=== PATIENT | male | born 1950 | race Caucasian/White ===

== ENCOUNTER → 2024-03-04 | Outpatient (CLI) | payer MEDICARE, OTHER, SELFPAY ==
[2024-03-04 14:19] LABS: Basophils # (Auto) 0.1 Thou/mm3 (0.0-0.2); Basophils % (Auto) 1 % (0-2.5); Eosinophils # (Auto) 0.4 Thou/mm3 (0.0-0.5); Eosinophils % (Auto) 3 % (0-10); Hemoglobin 14.3 g/dL (13.5-16.0); Immature Granulocytes % (Auto) 1 % (0-0); Immature Granulocytes Auto 0.06 Thou/mm3 (0.00-0.00); Lymphocytes # (Auto) 2.1 Thou/mm3 (1.0-4.8); Lymphocytes % (Auto) 18 % (10-50); Mean Corpuscular HGB Conc 32.5 g/dl (31.0-37.0); Mean Corpuscular Hemoglobin 27.6 pg (25.0-35.0); Mean Corpuscular Volume 85 fL (80-100); Monocytes # (Auto) 0.8 Thou/mm3 (0.0-0.8); Monocytes % (Auto) 7 % (0-12); Neutrophils # (Auto) 8.2 Thou/mm3 (1.8-7.7); Neutrophils % (Auto) 70 % (37-80); Nucleated Red Blood Cell % 0 /100 WBC (0); Platelet Count 330 Thou/mm3 (140-440); RDW Standard Deviation 46.4 fL (35.1-43.9); Red Blood Count 5.19 Miln/mm3 (4.50-5.90); White Blood Count 11.7 Thou/mm3 (3.8-10.6)
[2024-03-04 18:04] LABS: Path Review Blood Smear Sent to Pathologist
== END | disposition home or self-care (01) ==
LOC: COPL 13:13
PROVIDERS: PCP Internal Medicine; Referring Provider Internal Medicine; Visit Provider Internal Medicine
DX: I11.0 Hypertensive heart disease with heart failure (principal)
CPT/HCPCS: 36415; 85025

== ENCOUNTER 2024-03-24 10:16 | Emergency (ER) | payer MEDICARE, OTHER, SELFPAY ==
[2024-03-24 10:18] VITALS: BMI 27.3
[2024-03-24 10:38] VITALS: BP 193/87; PULSE 68; RESP 18; TEMP 36.6; O2SAT 97
--- NOTE | 2024-03-24 10:41 | XR_ITS ---
Examination: Duplex scan of the lower extremity, unilateral left complete Date and time of exam: March 24, 2024 1249 hours INDICATIONS: Lower leg pain beginning 10 days ago Technique: Duplex scan of the extremity veins using B-mode/grayscale imaging and Doppler spectral analysis and color flow Attention is directed to internal echogenicity, compression and augmentation involving these veins, color flow assessment, spectral analysis Findings: Major deep venous structures in the extremity demonstrate normal course and caliber. There is no evidence of deep vein thrombosis. Normal color flow and spectral analysis Impression: Negative for DVT..
--- NOTE | 2024-03-24 10:41 | XR_ITS ---
Examination:Left hip AP, lateral, AP pelvis 3 views Technique: Hip AP lateral, AP pelvis, 3 views Exam date and time:March 24, 2024 1102 hours INDICATIONS: Left hip pain beginning 10 days ago. FINDINGS: No hip fracture or hip dislocation Moderate bilateral hip osteoarthritis IMPRESSION: Moderate bilateral hip osteoarthritis.
--- NOTE | 2024-03-24 13:21 | PD.EDHIP ---
Lower Extremity Injury RME/HPI General Chief Complaint: Hip Injury/Pain Stated Complaint: L HIP PAIN NO TRUAMA Time Seen by Provider: 03/24/24 10:28 Arrival date/time: 03/24/24 10:16 73-year-old male presents the emergency department complaint of left hip pain which radiates down the left leg patient for symptoms ongoing for the last couple of months Limitations: no limitations Related Data Home Medications ?Medication ?Instructions ?Recorded ?Confirmed losartan 50 mg-hydrochlorothiazide 50 tab PO DAILY 05/24/21 11/28/21 12.5 mg tablet Previous Rx's ?Medication ?Instructions ?Recorded hydrocodone 5 mg-acetaminophen 325 1 tab PO BID PRN pain #6 tabs 03/24/24 mg tablet lidocaine 5 % topical patch 1 patch topical BID PRN pain #15 03/24/24 ea meloxicam 7.5 mg tablet 7.5 mg PO QDAY 7 days #7 tabs 03/24/24 prednisone 10 mg tablet 30 mg (3 x 10 mg) PO BID 3 days 03/24/24 #18 tabs Allergies Allergy/AdvReac Type Severity Reaction Status Date / Time No Known Allergies Allergy Verified 03/24/24 10:20 Review of Systems Review of Systems Systems Reviewed: All systems reviewed, normal except as documented Constitutional Constitutional: Reports system reviewed and no additional complaints, except as documented, Denies fever(s) and Denies headache(s) Eyes Eyes: Reports system reviewed and no additional complaints, except as documented and Denies blurry vision ENT Ears, Nose, Mouth, and Throat: Reports system reviewed and no additional complaints, except as documented, Denies headache(s), Denies nasal congestion and Denies nasal discharge Cardiovascular Cardiovascular: Reports system reviewed and no additional complaints, except as documented, Denies chest pain and Denies dyspnea Respiratory Respiratory: Reports system reviewed and no additional complaints, except as documented, Denies chest congestion, Denies cough and Denies dyspnea Gastrointestinal Gastrointestinal: Reports system reviewed and no additional complaints, except as documented and Denies abdominal pain Musculoskeletal Musculoskeletal: Reports system reviewed and no additional complaints, except as documented, Reports arthralgias, Denies deformity, Denies joint swelling, Reports stiffness and Denies tingling Integumentary/Breasts Skin/Breast: Reports system reviewed and no additional complaints, except as documented and Denies rash Neurologic Neurologic: Reports system reviewed and no additional complaints, except as documented, Reports as per HPI, Denies headache(s) and Denies tingling Past Medical History Past Medical History NEUROLOGIC: Negative Neurological Disorders CARDIAC: Negative Cardiac Disorders ED Exam General Limitations: Present no limitations General appearance: Present alert and in no apparent distress Head Head exam: Present atraumatic Eye Eye exam: Present normal appearance, PERRL and EOMI ENT ENT exam: Present normal exam, normal oropharynx and mucous membranes moist Neck Neck exam: Present normal inspection, full ROM and trachea midline Chest Chest inspection: Present normal inspection and symmetric chest wall rise Respiratory Respiratory exam: Present normal lung sounds bilaterally Cardiovascular Cardiovascular exam: Present regular rate, normal rhythm and normal heart sounds Abdominal Exam Abdominal exam: Present soft and normal bowel sounds; Absent distention, tenderness, guarding, rebound or rigidity Extremities Exam Extremities exam: Present full ROM, tenderness, normal capillary refill and other (Left hip pain); Absent joint swelling Back Exam Back exam: Present normal inspection and full ROM Neurological Exam Neurological exam: Present alert, oriented X3 and CN II-XII intact Psychiatric Psychiatric exam: Present normal affect and normal mood Skin Skin exam: Present warm, dry, intact and normal color Course Quality Measures none Orders Category Date Time Status US venous doppler LE LT Stat Exams 03/24/24 10:41 Completed XR hip LT w pelvis 2-3V Stat Exams 03/24/24 10:41 Completed Dexamethasone Inj [Decadron Inj] Med 03/24/24 13:27 Discontinued 10 mg PO X1 ONE Ketorolac Inj [Toradol Inj] Med 03/24/24 13:27 Discontinued 30 mg IM X1 ONE Vital Signs Vital signs: Vital Signs Temperature 98 F 03/24/24 10:38 Pulse Rate 68 03/24/24 10:38 Respiratory Rate 18 03/24/24 10:38 Blood Pressure 193/87 H 03/24/24 10:38 Pulse Oximetry (%) 97 03/24/24 10:38 Oxygen Delivery Method Room Air 03/24/24 10:38 O2 saturation 97% RA within normal limits Extremity Injury, Lower MDM Narrative MDM Narrative:: 73-year-old male presents the emergency department complaint of left hip pain which radiates down the left leg patient for symptoms ongoing for the last couple of months X-ray of the hip obtained patient has osteoarthritis patient walks steady gait Ultrasound left lower extremity obtained no evidence of DVT Patient given Toradol and dexamethasone here Patient discharged home in no distress to follow-up with primary care doctor in the next 24 to 48 hours and for any worsening symptoms to return to the ER immediately Patient data External records reviewed:: [facility] previous records Clinical information provided by:: patient Social determinants that could affect healthcare access:: none Patient has the following chronic illnesses:: See history How is presenting disease/condition affected by chronic disease/condition?: caused by Evaluation data The following diagnostics were reviewed and interpreted by me:: radiology exam(s) Lab and/or radiology exams considered but not ordered:: Radiology obtained Interpretation Summary: Reviewed by me Medications / Prescriptions Medications or Prescriptions considered but not ordered:: Given Medication administrations:: Medication Administration History Discontinued Medications Dexamethasone Sodium Phosphate (Dexamethasone Sod Phos Inj 10 Mg/Ml Vial) 10 mg PO X1 ONE Stop: 03/24/24 13:28 Last Admin: 03/24/24 13:34 Dose: 10 mg Documented By: OA Ketorolac Tromethamine (Ketorolac Inj 30 Mg/Ml Vial) 30 mg IM X1 ONE Stop: 03/24/24 13:28 Last Admin: 03/24/24 13:34 Dose: 30 mg Documented By: OA Given Consultations Consultation(s) initiated? (list below): No Diagnosis Extremity Injury, Lower Differential Diagnosis: other (Hip pain, hip strain, hip fracture) Most likely diagnosis given after review of the tests above:: Osteoarthritis Admission Indicated Admission indicated?: not indicated Admission Request Was there a request for admission?: No Disposition Plan Disposition Plan: Discharge Discharge Attestation Discharge Attestation: The patient and all family members were given an opportunity to ask questions and understood the discharge instructions. Discharge instructions specifically effects, indications for sooner follow up or return to the emergency department, and the expected course of current diagnosis. Patient condition: Stable Discharge Plan Plan Patient Disposition: HOME (Self Care) Disposition Comment: Stable Prescriptions/Referrals Prescriptions/Med Rec: New prednisone 10 mg tablet 30 mg PO BID 3 Days Qty: 18 0RF hydrocodone-acetaminophen 5-325 mg tablet 1 tab PO BID MDD 10 PRN (Reason: pain) Qty: 6 0RF meloxicam 7.5 mg tablet 7.5 mg PO QDAY 7 Days Qty: 7 0RF lidocaine 5 % adhesive patch,medicated 1 patch topical BID PRN (Reason: pain ) Qty: 15 0RF Rx Instructions: leave on most painful area for up to 12 hrs No Action losartan-hydrochlorothiazide 50-12.5 mg tablet 50 tab PO DAILY Patient Comments: TAKE ONE TABLET BY MOUTH EVERY DAY Referrals: Dave Murray MD [Primary Care Provider] - 03/25/24 Problem List Clinical Impression: Hip osteoarthritis Patient/Caregiver Discharge Instructions Education Materials: Osteoarthritis Additional Instructions: Please follow up with your primary care doctor in the next 24-48hrs for any worsening symptoms return here immediately Print Language: Mongolian Stand Alone Forms: [employer]ida Award Info., Patient Portal Info Letter PA/[employer]AMPGROUND CARETAKER Supervising Physician PA/[employer]ETAKER Supervising Physician: Dr. erwin
[2024-03-24] MEDS: DEXAMETHASONE SOD PHOS INJ 10 MG/ML VIAL PO (13:34)
[2024-03-24] MEDS: KETOROLAC INJ 30 MG/ML VIAL IM (13:34)
== END 2024-03-24 14:12 | disposition home or self-care (01) ==
PROVIDERS: Emergency Provider Emergency Medicine; PCP Internal Medicine
DX: M16.0 Bilateral primary osteoarthritis of hip (principal)
CPT/HCPCS: 73502; 93971; 96372; 99283; J1100; J1885

== ENCOUNTER 2024-03-29 06:49 | Emergency (ER) | payer MEDICARE, OTHER, SELFPAY ==
[2024-03-29 06:49] VITALS: BMI 28.0
[2024-03-29 07:22] VITALS: BP 184/80; PULSE 67; RESP 18; TEMP 36.9; O2SAT 98
--- NOTE | 2024-03-29 07:47 | EDNOTE_ITS ---
Lower Extremity Injury RME/HPI General Chief Complaint: Hip Injury/Pain Stated Complaint: L HIP PAIN Time Seen by Provider: 03/29/24 07:44 Arrival date/time: 03/29/24 06:49 RME / HPI RME / HPI Narrative: 73-year-old patient presents emergency department with complaint of left hip pain patient was seen here recently and prescribed [place] and meloxicam. Patient states that he is taking his medication as prescribed but states he is worried that he might run out of medications prior to seeing his doctor in 3 days. At his last visit he got an x-ray which indicated osteoarthritis. Ultrasound done at the same time was negative for blood clots. Patient states he has not taken his meloxicam or [place] today. Related Data Home Medications ?Medication ?Instructions ?Recorded ?Confirmed losartan 50 mg-hydrochlorothiazide 50 tab PO DAILY 05/24/21 11/28/21 12.5 mg tablet Previous Rx's ?Medication ?Instructions ?Recorded hydrocodone 5 mg-acetaminophen 325 1 tab PO BID PRN pain #6 tabs 03/24/24 mg tablet lidocaine 5 % topical patch 1 patch topical BID PRN pain #15 03/24/24 ea meloxicam 7.5 mg tablet 7.5 mg PO QDAY 7 days #7 tabs 03/24/24 Allergies Allergy/AdvReac Type Severity Reaction Status Date / Time No Known Allergies Allergy Verified 03/29/24 06:52 Review of Systems Review of Systems Systems Reviewed: All systems reviewed, normal except as documented Constitutional Constitutional: Reports system reviewed and no additional complaints, except as documented Cardiovascular Cardiovascular: Reports system reviewed and no additional complaints, except as documented Respiratory Respiratory: Reports system reviewed and no additional complaints, except as documented Musculoskeletal Musculoskeletal: Reports system reviewed and no additional complaints, except as documented ED Exam General General appearance: Present alert and in no apparent distress Head Head exam: Present atraumatic and normocephalic ENT ENT exam: Present normal exam and normal oropharynx Respiratory Respiratory exam: Present normal lung sounds bilaterally Cardiovascular Cardiovascular exam: Present regular rate and normal rhythm Expanded Lower Extremity Exam Hip/Pelvis exam: Present tenderness; Absent deformity, crepitus or dislocation Course Quality Measures none Orders Category Date Time Status Dexamethasone Inj [Decadron Inj] Med 03/29/24 07:45 Discontinued 10 mg IM X1 ONE Dexamethasone Inj [Decadron Inj] Med 03/29/24 07:45 Discontinued 10 mg PO X1 ONE Ketorolac Inj [Toradol Inj] Med 03/29/24 07:45 Discontinued 30 mg IM X1 ONE Vital Signs Vital signs: Vital Signs Temperature 98.4 F 03/29/24 07:22 Pulse Rate 67 03/29/24 07:22 Respiratory Rate 18 03/29/24 07:22 Blood Pressure 184/80 H 03/29/24 07:22 Pulse Oximetry (%) 98 03/29/24 07:22 Oxygen Delivery Method Room Air 03/29/24 07:22 Extremity Injury, Lower MDM Narrative MDM Narrative:: 73-year-old male patient presents emergency department with left hip pain at last visit he was diagnosed with osteoarthritis he has a follow-up visit with his doctor in 2 days here for pain control. Patient's last visit he was given Toradol and dexamethasone which seem to alleviate his pain and he is asking for the same medications today. Patient does not want a refill of his meloxicam on [place]. Patient data External records reviewed:: [facility] previous records Clinical information provided by:: patient Social determinants that could affect healthcare access:: none Patient has the following chronic illnesses:: na How is presenting disease/condition affected by chronic disease/condition?: no chronic disease (na) Evaluation data The following diagnostics were reviewed and interpreted by me:: other (specify) (na) Lab and/or radiology exams considered but not ordered:: na Interpretation Summary: na Medications / Prescriptions Medications or Prescriptions considered but not ordered:: meds ordered in ED Medication administrations:: Medication Administration History Discontinued Medications Dexamethasone Sodium Phosphate (Dexamethasone Sod Phos Inj 10 Mg/Ml Vial) 10 mg IM X1 ONE Stop: 03/29/24 07:46 Dexamethasone Sodium Phosphate (Dexamethasone Sod Phos Inj 10 Mg/Ml Vial) 10 mg PO X1 ONE Stop: 03/29/24 07:46 Ketorolac Tromethamine (Ketorolac Inj 60 Mg/2 Ml Vial) 30 mg IM X1 ONE Stop: 03/29/24 07:46 per above Consultations Consultation(s) initiated? (list below): No Diagnosis Most likely diagnosis given after review of the tests above:: osteoarthritis Admission Indicated Admission indicated?: not indicated Admission Request Was there a request for admission?: No Disposition Plan Disposition Plan: Discharge Discharge Attestation Discharge Attestation: The patient and all family members were given an opportunity to ask questions and understood the discharge instructions. Discharge instructions specifically effects, indications for sooner follow up or return to the emergency department, and the expected course of current diagnosis. Patient condition: Stable Discharge Plan Plan Patient Disposition: HOME (Self Care) Prescriptions/Referrals Prescriptions/Med Rec: No Action losartan-hydrochlorothiazide 50-12.5 mg tablet 50 tab PO DAILY Patient Comments: TAKE ONE TABLET BY MOUTH EVERY DAY hydrocodone-acetaminophen 5-325 mg tablet 1 tab PO BID MDD 10 PRN (Reason: pain) Qty: 6 0RF meloxicam 7.5 mg tablet 7.5 mg PO QDAY 7 Days Qty: 7 0RF lidocaine 5 % adhesive patch,medicated 1 patch topical BID PRN (Reason: pain ) Qty: 15 0RF Rx Instructions: leave on most painful area for up to 12 hrs Problem List Clinical Impression: Hip osteoarthritis Patient/Caregiver Discharge Instructions Education Materials: ED Osteoarthritis Print Language: Yoruba Stand Alone Forms: [employer] Award Info., Patient Portal Info Letter
[2024-03-29] MEDS: DEXAMETHASONE SOD PHOS INJ 10 MG/ML VIAL PO (08:04)
[2024-03-29] MEDS: KETOROLAC INJ 60 MG/2 ML VIAL 30 MG IM (08:04)
== END 2024-03-29 08:23 | disposition home or self-care (01) ==
LOC: SERX 08:21
PROVIDERS: Emergency Provider Emergency Medicine; PCP Pediatrics
DX: M16.12 Unilateral primary osteoarthritis, left hip (principal)
CPT/HCPCS: 96372; 99283; J1100; J1885

== ENCOUNTER → 2024-04-01 | Outpatient (CLI) | payer MEDICARE, OTHER, SELFPAY ==
--- NOTE | 2024-04-01 16:36 | XR_ITS ---
Examination: Lumbar spine, 5 views Technique: Lumbar spine AP, lateral, coned lateral lower lumbar spine, bilateral obliques 5 views Exam date and time: April 01, 2024 1711 hours INDICATIONS: Low back pain several years. FINDINGS: Spina bifida S1 Moderate osteopenia Mild to moderate diffuse facet arthropathy No lumbar fracture Diffuse moderate lumbar degenerative disc disease, most prominent L3-L4 Mild lumbar spondylosis IMPRESSION: Diffuse moderate lumbar degenerative disc disease
== END | disposition home or self-care (01) ==
PROVIDERS: PCP Internal Medicine; Referring Provider Internal Medicine; Visit Provider Internal Medicine
DX: M51.369 Other intervertebral disc degeneration, lumbar region without mention of lumbar back pain or lower extremity pain (principal)
CPT/HCPCS: 72110

== ENCOUNTER → 2025-03-06 | Outpatient (CLI) | payer MEDICARE, OTHER, SELFPAY ==
[2025-03-06 11:50] LABS: Basophils # (Auto) 0.1 Thou/mm3 (0.0-0.2); Basophils % (Auto) 1 % (0-2.5); Eosinophils # (Auto) 0.4 Thou/mm3 (0.0-0.5); Eosinophils % (Auto) 4 % (0-10); Hematocrit 38.3 % (41.0-53.0); Hemoglobin 12.5 g/dL (13.5-16.0); Immature Granulocytes Auto 0.07 Thou/mm3 (0.00-0.00); Lymphocytes # (Auto) 1.9 Thou/mm3 (1.0-4.8); Lymphocytes % (Auto) 17 % (10-50); Mean Corpuscular HGB Conc 32.6 g/dl (31.0-37.0); Mean Corpuscular Hemoglobin 28.5 pg (25.0-35.0); Mean Corpuscular Volume 87 fL (80-100); Monocytes # (Auto) 0.9 Thou/mm3 (0.0-0.8); Monocytes % (Auto) 8 % (0-12); Neutrophils # (Auto) 7.8 Thou/mm3 (1.8-7.7); Neutrophils % (Auto) 70 % (37-80); Nucleated Red Blood Cell # 0.00 Thou/mm3 (0.00-0.00); Nucleated Red Blood Cell % 0 /100 WBC (0); Platelet Count 340 Thou/mm3 (140-440); RDW Standard Deviation 47.5 fL (35.1-43.9); Red Blood Count 4.38 Miln/mm3 (4.50-5.90); White Blood Count 11.1 Thou/mm3 (3.8-10.6)
[2025-03-06 12:15] LABS: Glucose Estimated Average 126 mg/dL (80-131); Hemoglobin A1C 6.0 % Hgb (4.8-6.0)
[2025-03-06 15:38] LABS: Alanine Aminotransferase 17 U/L (10-49); Albumin, Serum 4.9 gm/dL (3.4-4.8); Albumin/Globulin Ratio 1.8 (1.2-2.2); Alkaline Phosphatase 115 U/L (46-116); Anion Gap 10 (7-16); Aspartate Amino Transferase 18 U/L (0-34); BUN/Creatinine Ratio 14 Ratio (12-20); Bilirubin,Total 0.5 mg/dL (0.3-1.2); Blood Urea Nitrogen 21 mg/dL (9-23); Calcium 9.9 mg/dL (8.3-10.6); Calcium (Corrected) 9.9 mg/dL (8.5-10.1); Carbon Dioxide 26.3 mMol/L (20.0-31.0); Cardiac Risk Estimate 3.4 RATIO (4.0-6.7); Chloride 110 mMol/L (98-107); Cholesterol 152 mg/dL (132-200); Creatinine (Component) 1.5 mg/dL (0.6-1.3); Free T4 (Free Thyroxine) 1.27 ng/dL (0.89-1.76); Globulin 2.8 gm/dL (2.3-3.5); Glucose 104 mg/dL (74-106); HDL Cholesterol 45 mg/dL (40-60); LDL Cholesterol,Calculated 84 mg/dL (0-130); Osmolality,Calculated 293 (275-295); Potassium 4.0 mMol/L (3.4-5.1); Sodium 146 mMol/L (136-145); Thyroid Stimulating Hormone 1.39 uIU/mL (0.55-4.78); Total Protein 7.7 gm/dL (5.7-8.2); Triglycerides 113 mg/dL (30-150); eGFR 49 See Note
[2025-03-06 21:58] LABS: Prostate Specific Antigen 2.35 ng/mL (0-4.00)
[2025-03-06 22:03] LABS: Vitamin D 25 Hydroxy Total 47.8 ng/mL (7.3-40.2)
== END | disposition home or self-care (01) ==
LOC: COPL 10:26
PROVIDERS: PCP Internal Medicine; Referring Provider Internal Medicine; Visit Provider Internal Medicine
DX: I11.0 Hypertensive heart disease with heart failure (principal); E11.9 Type 2 diabetes mellitus without complications; N40.1 Benign prostatic hyperplasia with lower urinary tract symptoms; E55.9 Vitamin D deficiency, unspecified; E03.9 Hypothyroidism, unspecified
CPT/HCPCS: 36415; 80053; 80061; 82306; 83036; 84153; 84439; 84443; 85025